=== PATIENT | female | born 1955 | race Hispanic/Latino ===

== ENCOUNTER 2019-05-02 07:13 | Inpatient (IN) | payer BC, SELFPAY ==
[2019-05-02] MEDS ORDERED: Ondansetron PF 4 MG/2 ML Vial ONE (07:44)
[2019-05-02 08:06] LABS: #Lymphocytes 1.3 thou/uL (1.20-3.40); #Monocytes 0.6 thou/uL (0.11-0.59); #Neutrophils 9.2 thou/uL (1.40-6.50); %Basophils 0.2 % (0.0-1.0); %Eosinophils 0.3 % (0.0-10.0); %Lymphocytes 11.4 % (21.0-51.0); %Monocytes 5.2 % (0.0-10.0); %Neutrophils 82.9 % (42.0-75.0); Hemoglobin 11.7 g/dL (12.0-16.0); Mean Corpuscular HGB CONC 33.5 g/dL (32.0-36.0); Mean Corpuscular Hemoglobin 30.4 pg (27.0-31.0); Mean Corpuscular Volume 90.5 fL (78.0-98.0); Mean Platelet Volume 8.1 fL (7.4-10.4); Platelet Count 300 thou/uL (130-400); RBC Distribution Width 11.6 % (11.5-14.5); Red Blood Cell (RBC) Count 3.86 mill/uL (4.20-5.40); White Blood Cell (WBC) Count 11.1 thou/uL (4.8-10.8)
[2019-05-02 08:21] LABS: ALT (SGPT) 120 U/L (8-55); AST (SGOT) 240 U/L (5-34); Albumin 4.1 g/dL (3.4-4.8); Alkaline Phosphatase 164 U/L (40-150); Anion Gap 12 mmol/L (10-20); BUN (Urea Nitrogen) 14 mg/dL (9.8-20.1); Bilirubin, Total 0.8 mg/dL (0.2-1.2); Calc. Creatinine Clearance 0 mL/min (70-130); Calcium 9.4 mg/dL (7.8-10.44); Carbon Dioxide 26 mmol/L (23-31); Chloride 103 mmol/L (98-107); Estimated GFR-MDRD 74; Globulin 3.3 g/dL (2.4-3.5); Glucose 117 mg/dL (80-115); Lipase 34 U/L (8-78); Potassium 3.3 mmol/L (3.5-5.1); Protein, Total 7.4 g/dL (6.0-8.3); Sodium 138 mmol/L (136-145)
--- NOTE | 2019-05-02 08:58 | RAD ---
CHEST 1 VIEW: HISTORY: Fall. Pain. FINDINGS: Normal cardiac silhouette. The pulmonary vessels and hilum are normal. Costophrenic angles are farida r. No masses or consolidation. No pneumothorax or osseous abnormalities. IMPRESSION: No acute cardiopulmonary process. POS: OFF
[2019-05-02 09:05] LABS: Bacteria/HPF None Seen HPF (None Seen); Bilirubin Negative (Negative); Blood, Urine Trace (Negative); Clarity Clear (Clear); Glucose, Urine (Dipstick) Normal (Negative); Leukocyte Negative Leu/uL (Negative); Nitrite Negative (Negative); Protein, Urine (Dipstick) Negative (Neg-Trace); RBC/HPF 0-3 HPF (0-3); Squamous Epithelial None Seen HPF (0-3); Urobilinogen 3 mg/dL (Less than 2); WBC/HPF 0-3 HPF (0-3)
--- NOTE | 2019-05-02 09:50 | ULT ---
GALLBLADDER AND RIGHT UPPER QUADRANT ULTRASOUND: HISTORY: Nausea. Right upper quadrant pain. COMPARISON: None. FINDINGS: The head and proximal body of the pancreas have a normal echotexture. The remainder of the pancreas is obscured by bowel gas. Hepatic parenchyma has a normal echotexture. No hepatic masses or intrahepatic biliary dilatation. The contour of the hepatic margin is maintained. Right hepatic lobe measures 14.5 cm. Main portal vein is patent. Appropriate direction of flow. Common bile duct diameter is 0.8 cm. Gallbladder is markedly distended measuring 12.2 cm. Gallbladder wall is thickened measuring 0.5 cm. Within the lumen of the gallbladder, there is a 0.3 cm echogenic focus with shadowing, compatible w ith gallstone. A small amount of sludge versus an intraluminal mass is noted within the lumen of the gallbladder, near the gallbladder fundus. There are nonmobile echogenic foci which may represent ga llbladder wall polyps. Negative Cortez's sign. Right kidney has a normal cortical echotexture. No hydronephrosis. The right kidney measures 4.3 x 8.6 x 4.5 cm. IMPRESSION: 1. Sludge versus intraluminal mass in the gallbladder fundus. There is also evidence of gallbladder wall polyps and an approximately 3 cm gallstone. Gallbladder wall is thickened. However, no signif icant pericholecystic fluid. Negative Cortez's sign is reported. Clinical correlation and HIDA scan if clinically warranted. 2. Prominence of the common bile duct, greater than expected for patient's age. The possibility of choledocholithiasis cannot be excluded. POS: OFF
--- NOTE | 2019-05-02 11:32 | CT ---
EXAM: CT ABDOMEN AND PELVIS HISTORY: Right rib pain. Status post mechanical fall last week. Right upper quadrant pain. COMPARISON: None. Procedure: Multiple contiguous axial images were obtained and a CT of the abdomen and pelvis with IV contrast. C oronal reformats were performed. FINDINGS: Lower Chest: within normal limits. Vessels: Normal caliber aorta. No periaortic fat stranding. Heart: Normal heart size. No pericardial effusion Abdomen: Portal vein:Patent. There is periportal edema. Gallbladder: Markedly distended. There is pericholecystic fluid. There does appear to be CT evidence of Monique lithiasis and cholecystitis. Common bile duct dilatation noted on ultrasound is difficult to corroborate on this current exam. Liver: within normal limits. Pancreas: within normal limits. Spleen: within normal limits. Adrenals: within normal limits. Kidneys: Symmetric enhancement. No obstructive uropathy. 1.3 cm left renal cortical cyst. Peritoneum: Small amount of free fluid in the right paracolic gutter, perihepatic space and in Moriso n's pouch. Bowel: Limited evaluation due to lack of oral contrast. No evidence of bowel obstruction. Unremarkabl e ileocecal junction. Normal caliber appendix. Unremarkable colon. Mesentery and Retroperitoneum: No enlarged mesenteric or retroperitoneal lymph nodes. Abdominal Wall: Small umbilical hernia containing mesenteric Pelvis: Reproductive Organs: No pelvic masses. Pelvis: There is free fluid in the pelvis. Bladder: within normal limits. Bones: within normal limits. IMPRESSION: 1. Distended gallbladder without CT evidence for point size. 2. Nonspecific periportal edema. 3. Slightly complex left renal cortical cyst. 4. Suboptimal evaluation the common bile duct. There is concern for choledocholithiasis, consider ERC P.
[2019-05-02] MEDS ORDERED: ISOVUE-370 76%-LOCM 1 ML ONE (13:02)
[2019-05-02] MEDS ORDERED: Ondansetron PF 4 MG/2 ML Vial IVP PRN ×2 (13:56→15:15)
[2019-05-02] MEDS ORDERED: Ondansetron ODT 4 MG TAB SL PRN (13:56)
[2019-05-02] MEDS ORDERED: Morphine 2 MG/ML SYRINGE SLOW IVP PRN ×3 (13:58→15:15)
[2019-05-02] MEDS ORDERED: Promethazine HCl 25 MG/ML VIAL IM PRN (15:15)
[2019-05-02] MEDS ORDERED: Mag-Al 1200 mg/1200 mg/30 ML UDCUP PO PRN (15:15)
[2019-05-02] MEDS ORDERED: Calcium Carbonate 500 MG ChewTAB PO PRN (15:15)
[2019-05-02] MEDS ORDERED: hydrALAZINE 20 MG/ML VIAL SLOW IVP PRN (15:15)
[2019-05-02] MEDS ORDERED: Dextrose 50% Abboject 50 ML SYRINGE SLOW IVP PRN (15:15)
[2019-05-02] MEDS ORDERED: Dextrose 5% in Water 1,000 ML IV PRN (15:15)
--- NOTE | 2019-05-02 15:32 | HP ---
CHIEF COMPLAINT: Right upper quadrant abdominal pain. HISTORY OF PRESENT ILLNESS: The patient is a 63-year-old female, who a week ago fell against her right side and developed pain there. She said that she then ate a hamburger and started having crampy abdominal pain followed by a bowel movement. The pain is persisted. She went to [facility]. They told her that it was probably a bruised rib. She has had some nausea and vomiting. PAST MEDICAL HISTORY: Hypothyroidism. PAST SURGICAL HISTORY: None. MEDICATIONS: 1. Levothyroxine. 2. Vitamin D. ALLERGIES: TO SULFA. 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 Social alcohol. FAMILY HISTORY: Diabetes, hypertension, and renal cell carcinoma. PHYSICAL EXAMINATION: VITAL SIGNS: She is afebrile, pulse 87, and blood pressure 141/63. GENERAL: She is awake and alert, does not appear to be in any distress. HEENT: No jaundice. LUNGS: Clear. HEART: Regular rate and rhythm. ABDOMEN: Soft. She is tender along the right lateral rib cage, but really no significant abdominal tenderness. LABORATORY DATA: Her white count is 11.1, H and H of 11 and 34, and platelet count of 300,000. Electrolytes are fine, but elevated glucose at 117. T-bili is 0.8, AST elevated at 240, ALT at 120, and alkaline phosphatase at 164. IMAGING DATA: Ultrasound shows distended gallbladder 12 cm, thickened gallbladder wall. She has gallstones and sludge. No sonographic Cortez's sign. Chest x-ray negative. ASSESSMENT: Cholecystitis with elevated liver function tests. PLAN: Recommend laparoscopic cholecystectomy. CONSENT: I have discussed planned procedure as well as risk of bleeding, infection, injury to bowel, bile duct, need to open, she understands and gives informed consent. Job ID: [id number]
[2019-05-02] MEDS: D5 1/2 NS w/20 mEq KCL 1,000 ML IV SCH ×2 (17:28→23:51)
[2019-05-02] MEDS: Sodium Chloride 0.9% 1,000 ML IV SCH ×2 (17:35→21:22)
[2019-05-02] MEDS: Piperacillin/Tazobactam 3.375 GM in Sodium Chloride 0.9% 100 ML IVPB SCH ×2 (17:36→23:47)
[2019-05-02] MEDS: Famotidine 20 MG TAB PO SCH (21:20)
[2019-05-02] MEDS: Famotidine/PF 20 mg/2ml Vial SLOW IVP SCH (21:22)
[2019-05-03 05:04] LABS: #Basophils 0.1 thou/uL (0.0-0.2); #Eosinphils 0.2 thou/uL (0.0-0.7); #Lymphocytes 1.8 thou/uL (1.20-3.40); #Monocytes 0.4 thou/uL (0.11-0.59); #Neutrophils 2.8 thou/uL (1.40-6.50); %Basophils 1.1 % (0.0-1.0); %Lymphocytes 34.5 % (21.0-51.0); %Neutrophils 54.4 % (42.0-75.0); Hemoglobin 11.1 g/dL (12.0-16.0); Mean Corpuscular HGB CONC 33.5 g/dL (32.0-36.0); Mean Corpuscular Volume 92.3 fL (78.0-98.0); Platelet Count 293 thou/uL (130-400); RBC Distribution Width 11.6 % (11.5-14.5); Red Blood Cell (RBC) Count 3.58 mill/uL (4.20-5.40); White Blood Cell (WBC) Count 5.2 thou/uL (4.8-10.8)
[2019-05-03 05:21] LABS: ALT (SGPT) 234 U/L (8-55); AST (SGOT) 197 U/L (5-34); Albumin 3.4 g/dL (3.4-4.8); Alkaline Phosphatase 170 U/L (40-150); Anion Gap 11 mmol/L (10-20); BUN (Urea Nitrogen) 7 mg/dL (9.8-20.1); Bilirubin, Total 0.6 mg/dL (0.2-1.2); Calc. Creatinine Clearance 0 mL/min (70-130); Calcium 8.6 mg/dL (7.8-10.44); Carbon Dioxide 25 mmol/L (23-31); Chloride 107 mmol/L (98-107); Estimated GFR-MDRD 85; Globulin 2.7 g/dL (2.4-3.5); Glucose 108 mg/dL (80-115); Lipase 28 U/L (8-78); Potassium 3.8 mmol/L (3.5-5.1); Protein, Total 6.1 g/dL (6.0-8.3); Sodium 139 mmol/L (136-145)
[2019-05-03] MEDS: Piperacillin/Tazobactam 3.375 GM in Sodium Chloride 0.9% 100 ML IVPB SCH ×4 (06:15→23:44)
[2019-05-03] MEDS: Famotidine/PF 20 mg/2ml Vial SLOW IVP SCH ×2 (08:34→20:22)
[2019-05-03] MEDS: D5 1/2 NS w/20 mEq KCL 1,000 ML IV SCH ×3 (08:35→17:48)
[2019-05-03] MEDS: Famotidine 20 MG TAB PO SCH ×2 (08:35→20:23)
[2019-05-03] MEDS ORDERED: Sodium Chloride 0.9% 100 ML ONE (11:23)
[2019-05-03] MEDS ORDERED: Piperacillin/Tazobactam 3.375 GM VIAL ONE (11:23)
[2019-05-03] MEDS ORDERED: Fentanyl 100 MCG/2 ML VIAL ONE ×2 (11:47→13:28)
[2019-05-03] MEDS ORDERED: Midazolam HCl 2 mg/2 ml Vial ONE (11:47)
[2019-05-03] MEDS ORDERED: Iothalamate Meglumine 60% 50 ML VIAL FS ONE (11:48)
[2019-05-03] MEDS ORDERED: Bupivacaine/Epinephrine 0.25% 30 ML VIAL ONE (11:48)
[2019-05-03] MEDS ORDERED: Promethazine HCl 25 MG/ML VIAL IM PRN ×2 (12:50→13:09)
[2019-05-03] MEDS ORDERED: Promethazine HCl 25 MG/ML VIAL SLOW IVP PRN (12:50)
[2019-05-03] MEDS ORDERED: Ondansetron HCl/PF 4 MG/2 ML Vial IVP PRN ×2 (12:50→14:07)
[2019-05-03] MEDS ORDERED: Acetaminophen 325 MG TAB PO PRN (13:09)
[2019-05-03] MEDS ORDERED: Calcium Carbonate 500 MG ChewTAB PO PRN (13:09)
[2019-05-03] MEDS ORDERED: Dextrose 50% Abboject 50 ML SYRINGE SLOW IVP PRN (13:09)
[2019-05-03] MEDS ORDERED: HYDROcodone/Acetaminophen 10/325 mg Tablet PO PRN (13:09)
[2019-05-03] MEDS ORDERED: Morphine 4 MG/ML VIAL SLOW IVP PRN (13:09)
[2019-05-03] MEDS ORDERED: Ondansetron PF 4 MG/2 ML Vial IVP PRN (13:09)
[2019-05-03] MEDS ORDERED: Morphine 2 MG/ML SYRINGE SLOW IVP PRN (13:09)
[2019-05-03] MEDS ORDERED: Mag-Al 1200 mg/1200 mg/30 ML UDCUP PO PRN (13:09)
[2019-05-03] MEDS ORDERED: hydrALAZINE 20 MG/ML VIAL SLOW IVP PRN (13:09)
[2019-05-03] MEDS ORDERED: Dextrose 5% in Water 1,000 ML IV PRN (13:09)
--- NOTE | 2019-05-03 13:12 | RAD ---
EXAM: XR Cholangiogram in Surgery PROVIDED CLINICAL HISTORY: Cholelithiasis and gallbladder sludge. COMPARISON: None FINDINGS/IMPRESSION: 2 intraoperative fluoroscopic image of the right upper quadrant is submitted for interpretation. Prov ided image demonstrates surgical measurements overlying the right upper quadrant with cannulation of the cystic duct. There is opacification of the common duct and proximal intrahepatic bile ducts wi th evidence of free spill of contrast into the duodenum. No obvious filling defect is seen, but the common duct proximal to the level of the cystic duct is not well distended with contrast. There is mi ld prominence of the common duct distal to the level of the cystic duct. Surgical clips are seen overlying the right upper quadrant. Correlation with intraoperative findings is recommended.
--- NOTE | 2019-05-03 13:56 | OP ---
DATE OF PROCEDURE: 05/03/2019 PREOPERATIVE DIAGNOSIS: Acute cholecystitis. PROCEDURE PERFORMED: Laparoscopic cholecystectomy with cholangiogram. INDICATIONS: A 63-year-old female presented with severe right upper quadrant pain. Ultrasound showed cholelithiasis and thickened gallbladder wall and elevated liver functions. FINDINGS: Distended gallbladder encased with omentum, acutely inflamed and thickened, 90 mL of the of white bile removed, consistent with hydrops. Short cystic duct, which was dilated. Cholangiogram showed no filling defects, free flow into the duodenum. DESCRIPTION OF PROCEDURE: After informed consent was obtained, the patient was taken to the operating room, given general endotracheal anesthesia, and placed in the supine position. Abdomen was prepped and draped in the usual fashion. Local anesthesia infiltrated subcutaneously and deep. A subumbilical incision was performed. Subcu divided sharply. The fascia grasped and 2 stay sutures of 0 Vicryl placed through side of midline. Midline incised. Digital palpation revealed no local adhesions. A blunt 12-mm trocar inserted. Pneumoperitoneum was created to a pressure of 15 mmHg. A 0-degree laparoscope inserted under direct vision. Three 5-mm ports were placed subcostally. The gallbladder was encased in omentum and acutely inflamed. It was punctured with the aspirating needle and 90 mL of cloudy white bile removed. This was sent for culture. The gallbladder was grasped and advanced superiorly and the omentum was taken down off the gallbladder. The duodenum was also stuck to the gallbladder and this was bluntly taken off. Eventually was able to dissect down and dissect out the cystic duct and artery in critical view. The cystic duct was dilated. A clip was placed at the base of the gallbladder and an incision made in the cystic duct. An Arrow cholangiocatheter inserted. Intraoperative cholangiogram performed, showed a very small caliber common bile duct. It actually lit up the pancreatic duct and free flow into the duodenum without filling defect. The catheter was removed. Since the cystic duct was so large, it had to be closed with a 0 PDS Endoloop x2 and also put a clip on it. The cystic artery was triply ligated with hemoclips and divided. The gallbladder was removed from its fossa utilizing electrocautery and was placed in an Endosac, removed from the abdomen in the Endosac. Hemostasis was assured with electrocautery, then also Juan powder. A drain was placed and brought out through the most lateral incision. Hemostasis was assured. Trocars and retractors were removed. The fascia closed with interrupted 0 Vicryl suture. The skin closed with interrupted 4-0 Rapide. Dermabond applied. The patient tolerated the procedure well, transferred to Recovery in good condition. Sponge and needle count verified correct x2. Job ID: [id number]
[2019-05-03] MEDS ORDERED: Promethazine HCl 25 MG/ML VIAL IM/IV PRN (14:07)
[2019-05-03] MEDS ORDERED: Non-Formulary Medication 1 EACH PO PRN (14:07)
[2019-05-03 14:37] VITALS: BMI 23.0
[2019-05-03] MEDS: HYDROcodone/Acetaminophen 10/325 mg Tablet PO PRN ×2 (14:46→21:14)
[2019-05-03] MEDS ORDERED: Rocuronium Bromide 10 MG/ML (10ML VIAL) ONE (17:24)
[2019-05-03] MEDS ORDERED: Dexamethasone 20 MG/5 ML VIAL ONE (17:24)
[2019-05-03] MEDS ORDERED: Glycopyrrolate 0.2 MG/ML 5 ML SYRINGE ONE (17:24)
[2019-05-03] MEDS ORDERED: Ondansetron PF 4 MG/2 ML Vial ONE (17:24)
[2019-05-03] MEDS ORDERED: PROPOFOL 200 MG/20 ML VIAL ONE (17:24)
[2019-05-03] MEDS ORDERED: Ketorolac Tromethamine 30 MG/ML VIAL ONE (17:24)
[2019-05-04] MEDS: D5 1/2 NS w/20 mEq KCL 1,000 ML IV SCH ×4 (03:35→22:53)
[2019-05-04 04:26] LABS: #Monocytes 0.5 thou/uL (0.11-0.59); #Neutrophils 8.3 thou/uL (1.40-6.50); %Basophils 0.1 % (0.0-1.0); %Eosinophils 0.1 % (0.0-10.0); %Lymphocytes 10.5 % (21.0-51.0); %Monocytes 4.9 % (0.0-10.0); %Neutrophils 84.5 % (42.0-75.0); Hemoglobin 9.4 g/dL (12.0-16.0); Mean Corpuscular HGB CONC 33.4 g/dL (32.0-36.0); Mean Corpuscular Hemoglobin 31.1 pg (27.0-31.0); Mean Corpuscular Volume 93.3 fL (78.0-98.0); Platelet Count 321 thou/uL (130-400); RBC Distribution Width 11.7 % (11.5-14.5); Red Blood Cell (RBC) Count 3.03 mill/uL (4.20-5.40); White Blood Cell (WBC) Count 9.8 thou/uL (4.8-10.8)
[2019-05-04] MEDS: HYDROcodone/Acetaminophen 10/325 mg Tablet PO PRN ×2 (04:47→13:34)
[2019-05-04 05:36] LABS: ALT (SGPT) 239 U/L (8-55); AST (SGOT) 171 U/L (5-34); Albumin 3.5 g/dL (3.4-4.8); Alkaline Phosphatase 153 U/L (40-150); Anion Gap 11 mmol/L (10-20); BUN (Urea Nitrogen) 7 mg/dL (9.8-20.1); Bilirubin, Total 0.4 mg/dL (0.2-1.2); Calc. Creatinine Clearance 71 mL/min (70-130); Calcium 8.5 mg/dL (7.8-10.44); Carbon Dioxide 24 mmol/L (23-31); Chloride 105 mmol/L (98-107); Estimated GFR-MDRD 78; Globulin 2.7 g/dL (2.4-3.5); Glucose 131 mg/dL (80-115); Lipase 18 U/L (8-78); Potassium 3.9 mmol/L (3.5-5.1); Protein, Total 6.2 g/dL (6.0-8.3); Sodium 136 mmol/L (136-145)
[2019-05-04] MEDS: Piperacillin/Tazobactam 3.375 GM in Sodium Chloride 0.9% 100 ML IVPB SCH ×4 (05:38→23:49)
[2019-05-04] MEDS: Famotidine 20 MG TAB PO SCH ×2 (08:43→19:44)
[2019-05-04] MEDS: Famotidine/PF 20 mg/2ml Vial SLOW IVP SCH ×2 (08:46→19:54)
[2019-05-04] MEDS: Enoxaparin Sodium 40 MG/0.4 ML SYRINGE SC SCH (10:00)
--- NOTE | 2019-05-04 14:53 | PRG ---
DATE OF SERVICE: 05/04/2019 SUBJECTIVE: The patient says she just feels weak. She says that it hurts to take a breath, but she is tolerating diet fine. No nausea or vomiting. OBJECTIVE: VITAL SIGNS: Temperature 97.7, pulse 84, blood pressure 115/66. GENERAL: She looks good. She just looks weak. ABDOMEN: Soft and nondistended. She does have quite a bit coming out her JENNIFER. She has had 110 mL and it is a nearly pure blood. She has also had some blood leaking around the drain site. LABORATORY DATA: Her hemoglobin and hematocrit are 9.4 and 28, which are down from 11 and 33. PLAN: To repeat her hemoglobin and hematocrit now and in the morning. Keep for another night. Job ID: [id number]
[2019-05-04 15:46] LABS: #Eosinphils 0.1 thou/uL (0.0-0.7); #Lymphocytes 1.9 thou/uL (1.20-3.40); #Monocytes 0.7 thou/uL (0.11-0.59); #Neutrophils 7.6 thou/uL (1.40-6.50); %Basophils 0.1 % (0.0-1.0); %Eosinophils 0.5 % (0.0-10.0); %Lymphocytes 18.5 % (21.0-51.0); %Monocytes 7.2 % (0.0-10.0); %Neutrophils 73.7 % (42.0-75.0); Hemoglobin 8.5 g/dL (12.0-16.0); Mean Corpuscular HGB CONC 33.2 g/dL (32.0-36.0); Mean Corpuscular Hemoglobin 30.9 pg (27.0-31.0); Mean Corpuscular Volume 93.1 fL (78.0-98.0); Mean Platelet Volume 7.6 fL (7.4-10.4); Platelet Count 311 thou/uL (130-400); RBC Distribution Width 11.7 % (11.5-14.5); Red Blood Cell (RBC) Count 2.75 mill/uL (4.20-5.40); White Blood Cell (WBC) Count 10.2 thou/uL (4.8-10.8)
[2019-05-05 05:37] LABS: #Basophils 0.1 thou/uL (0.0-0.2); #Eosinphils 0.1 thou/uL (0.0-0.7); #Lymphocytes 1.8 thou/uL (1.20-3.40); #Monocytes 0.6 thou/uL (0.11-0.59); #Neutrophils 5.8 thou/uL (1.40-6.50); %Basophils 0.6 % (0.0-1.0); %Lymphocytes 21.3 % (21.0-51.0); %Monocytes 7.4 % (0.0-10.0); %Neutrophils 69.6 % (42.0-75.0); Mean Corpuscular HGB CONC 32.8 g/dL (32.0-36.0); Mean Corpuscular Hemoglobin 30.6 pg (27.0-31.0); Mean Corpuscular Volume 93.4 fL (78.0-98.0); Mean Platelet Volume 7.7 fL (7.4-10.4); Platelet Count 296 thou/uL (130-400); RBC Distribution Width 11.8 % (11.5-14.5); White Blood Cell (WBC) Count 8.3 thou/uL (4.8-10.8)
[2019-05-05] MEDS: Piperacillin/Tazobactam 3.375 GM in Sodium Chloride 0.9% 100 ML IVPB SCH ×4 (05:43→23:49)
[2019-05-05] MEDS: D5 1/2 NS w/20 mEq KCL 1,000 ML IV SCH (08:11)
[2019-05-05] MEDS: Famotidine 20 MG TAB PO SCH ×2 (08:11→19:47)
[2019-05-05] MEDS: HYDROcodone/Acetaminophen 10/325 mg Tablet PO PRN ×2 (08:16→20:55)
[2019-05-05] MEDS: Enoxaparin Sodium 40 MG/0.4 ML SYRINGE SC SCH (09:36)
[2019-05-05] MEDS: Famotidine/PF 20 mg/2ml Vial SLOW IVP SCH ×2 (09:36→19:47)
[2019-05-05 12:14] LABS: Hemoglobin 8.5 g/dL (12.0-16.0)
[2019-05-06] MEDS: Piperacillin/Tazobactam 3.375 GM in Sodium Chloride 0.9% 100 ML IVPB SCH (05:25)
[2019-05-06 08:31] VITALS: BP 110/66; TEMP 97.9
[2019-05-06] MEDS: Famotidine 20 MG TAB PO SCH (08:47)
--- NOTE | 2019-05-07 04:30 | DIS ---
DATE OF ADMISSION: 05/02/2019 DATE OF DISCHARGE: 05/06/2019 DISCHARGE DIAGNOSIS: Acute cholecystitis. PROCEDURES DURING ADMISSION: Laparoscopic cholecystectomy with intraoperative cholangiogram. HOSPITAL COURSE: The patient was admitted, given IV antibiotics, taken to the operating room where she underwent a laparoscopic cholecystectomy with cholangiogram. Cholangiogram was fine. Postoperatively, she had some postop hemorrhage from her drain. Her H and H dropped from 11 down to 8 and then was back up to 8.5. She is doing fine now. She is tolerating a diet. She is still putting out some bloody fluid from her drain. Her bowels are functioning. She is discharged home on hydrocodone and Zofran and Augmentin as beta-hemolytic strep was grown out of her gallbladder. She will follow up with me on Friday to remove the drain. Job ID: [id number]
--- NOTE | 2019-05-08 03:20 | PQF ---
ILSA WHITEHEAD JOHN A JR MD [id number] [facility] 3319 [id number] CLINICAL DOCUMENTATION CLARIFICATION FORM: POST DISCHARGE Addendum to original discharge summary date: ____ Late entry note date: __ DATE: 05/08/19 ATTN: Irving Elizabeth Please exercise your independent, professional judgment in responding to the clarification form. Clinical indicators are provided on the bottom of this form for your review Can you please further specify the diagnosis based on the clinical indicators below? Please check appropriate box(s): [ ] Acute blood loss anemia [ ] Post-op anemia related to acute blood loss [ ] Other diagnosis please specify [ ] Unable to determine In addition, please specify: Present on Admission (POA): [ ] Yes [ ] No [ ] Unable to determine For continuity of documentation, please document condition throughout progress notes and discharge summary. Thank You. CLINICAL INDICATORS - SIGNS / SYMPTOMS / LABS PN 05/04 Dr. Devine pg.1- her hemoglobin and hematocrit are 9.4 and 28 which are down from 11 and 33. DS 05/06 pg.1- Postoperatively, she had postop hemorrhage from her drain. DS 05/06 pg.1- Her H and H dropped from 11 down to 8 and then was back up to 8.5 RISK FACTORS Acute cholecystitis-DS 05/06 pg.1- Underwent a laparoscopic cholecystectomy-DS pg.1 TREATMENT: H and H monitoring- Laboratory IV Fluids- OCT 24 (This form is maintained as a part of the permanent medical record) 2014 [facility]. All Rights Reserved [email or web address] [not provided] MTDD
--- NOTE | 2019-05-08 13:59 | EKG ---
Test Reason : CHEST PAIN Blood Pressure : / mmHG Vent. Rate : 085 BPM Atrial Rate : 085 BPM P-R Int : 158 ms QRS Dur : 074 ms QT Int : 358 ms P-R-T Axes : 048 032 053 degrees QTc Int : 426 ms Normal sinus rhythm Normal ECG Confirmed by PARAMJIT HDZ ([id number]), subeditor MIKA RATLIFF ([id number]) on 05/08/2019 1:59:17 PM Referred By: Confirmed By:PARAMJIT HDZ
== END 2019-05-06 11:27 | disposition home or self-care (01) | DRG 418 ==
LOC: ERS 07:13 → SJJU 11:19
PROVIDERS: ADMIT Surgery; ATTEND Surgery
PROC: 0FT44ZZ Resection of Gallbladder, Percutaneous Endoscopic Approach (ICD-10-PCS; principal; 2019-05-03)
PROC: BF10YZZ Fluoroscopy of Bile Ducts using Other Contrast (ICD-10-PCS; 2019-05-03)
DX: K81.0 Acute cholecystitis (principal); K82.1 Hydrops of gallbladder; E03.9 Hypothyroidism, unspecified; Z88.2 Allergy status to sulfonamides; Z79.899 Other long term (current) drug therapy; Z91.81 History of falling
CPT/HCPCS: 36415; 47532; 71045; 74177; 76705; 80053; 81003; 81015; 83605; 83690; 85025; 87070; 87077; 87205; 88304; 93005; 96361; 96374; J1100; J1650; J1885; J2250; J2270; J2405; J2543; J2704; J3010; J3490; Q9966; S0028

== ENCOUNTER 2025-01-06 13:35 | Outpatient (CLI) | payer OTHER | END 2025-01-06 13:36 | disposition home or self-care (01) | LOC: BICRAD 13:35 | PROVIDERS: ATTEND Family Medicine | DX: M79.672 Pain in left foot (principal); M54.6 Pain in thoracic spine; M54.50 Low back pain, unspecified; Z91.81 History of falling | CPT/HCPCS: 72072; 72100 ==